=== PATIENT | female | born 1940 | race Caucasian/White ===

== ENCOUNTER 2025-04-12 17:17 | Emergency (ER) | payer OTHER, MEDICARE, SELFPAY ==
--- NOTE | ~2025-04-12 | CT_ITS ---
CT brain wo con Ordering provider: Amy Eason MD History: 84 years Female with . fall, occipital hematoma . Comparison: None. Technique: CT of the head without contrast. Radiation reduction technique utilized.The dose-length pr oduct was 756.67 mGy-cm. FINDINGS: BRAIN PARENCHYMA AND CSF SPACES: Mild leukoaraiosis and diffuse cortical atrophy. Mild atheromatous d isease. No midline shift, mass effect or hemorrhage. The brain parenchyma and CSF spaces are otherwi se normal. VISUALIZED PARANASAL SINUSES: Well aerated. MASTOIDS: Minimal effusion the left mastoid air cells posteriorly Well aerated. BONES: The bones appear intact. SOFT TISSUES: Visualized nasopharynx is normal. Left occipital scalp hematoma. Otherwise, Superficia l soft tissues are normal. IMPRESSION: No acute intracranial findings. Reviewed, dictated and finalized at location A.
--- NOTE | ~2025-04-12 | XR_ITS ---
XR elbow LT 2V Ordering provider: Amy Eason MD History: . fall, ecchymosis . Comparison: None. FINDINGS: BONES: Fracture in the radial head is noted. No other definite fractures seen. JOINT SPACES: Narrowing with osteoarthritic changes. SOFT TISSUES: Anterior fat pad is elevated. IMPRESSION: Fracture radial head with elevation of the anterior fat pad. Reviewed, dictated and finalized at location A.
--- NOTE | ~2025-04-12 | CT_ITS ---
CT cervical spine wo con Ordering provider: Amy Eason MD History: . fall . Comparison: None. Technique: CT of the cervical spine was performed without contrast. Sagittal and coronal reformatted images were also obtained and reviewed. Automated exposure control and iterative reconstruction sandeep hnique were employed. The dose-length product was 756.67 mGy-cm. FINDINGS: VERTEBRAE: Minimal anterolisthesis at the level of C4-C5. No subluxation or acute fracture. The occip ital condyles are intact. Bifid spinous process of C2. DISC SPACES: Narrowing of the disc C5-C6. Multilevel facet joint disease. Multilevel uncovertebral ramy int osteoarthritic changes. Multilevel intervertebral foraminal narrowing. PARASPINOUS SOFT TISSUES: Bilateral atherosclerotic changes of the carotid arteries. IMPRESSION: No acute osseous abnormality cervical spine. Degenerative disc disease at the level of C5-C6. Reviewed, dictated and finalized at location A.
[2025-04-12 17:19] VITALS: BP 162/80; PULSE 128; RESP 19; TEMP 36.7; O2SAT 99
--- NOTE | 2025-04-12 17:36 | ED.FALL ---
HPI - Fall General Chief Complaint: Fall Stated Complaint: fall Time Seen by Provider: 04/12/25 17:30 Source: patient and family Mode of arrival: ambulatory Limitations: no limitations History of Present Illness HPI Narrative: Patient presents after falling in the hospital parking lot approximately 30 minutes prior to arrival as she was visit someone in the hospital. She notes that she was using her walker /roller when it hit a bump causing her to fall. Wound given the pain scale of 0/10 she denies any pain. She states she has only been sore. She initially trialed icing the areas. She did strike her head although she denies loss of consciousness. She has a hematoma on her posterior scalp. She is not on anticoagulation other than 81 mg aspirin which she took today. She also struck her left elbow. She was recently discontinued from her metoprolol. Related Data Allergies Allergy/AdvReac Type Severity Reaction Status Date / Time Penicillins Allergy Hives Verified 04/12/25 17:48 Exam Narrative: GENERAL: Well-appearing, well-nourished, and in no acute distress. HEAD: Moderate sized hematoma with ecchymosis. overlying posterior scalp. Skin intact/no laceration. EYES: Non injected, non icteric ENT: Nares clear, no rhinorrhea or epistaxis. Gross auditory acuity intact. NECK: Supple. No meningismus. CHEST: Speaking in full sentences. No respiratory distress. HEART: Tachycardic rate and rhythm. Strong radial pulse on the left. ABDOMEN: Soft, nondistended. No rigidity or guarding. Not peritoneal EXTREMITIES: Normal range of motion. Patient able to demonstrate extension and flexion of the bilateral wrists and also performs flexion/extension of L elbow. No upper extremity edema. No tenderness to palpation of elbow. SKIN: Warm. Ecchymosis overlying posterior aspect of left elbow. NEURO: No focal deficits. Alert and oriented. Answering questions. Following commands. Normal speech without aphasia or dysarthria. Sensation intact to gross touch throughout the left arm. PSYCH: Normal mood and affect. Course Vital Signs Vital signs: Vital Signs Temperature 98.0 F 04/12/25 17:19 Pulse Rate 128 H 04/12/25 17:19 Respiratory Rate 19 04/12/25 17:19 Blood Pressure 162/80 H 04/12/25 17:19 Pulse Oximetry 99 04/12/25 17:19 Oxygen Delivery Room Air 04/12/25 17:19 Temperature 98.0 F 04/12/25 17:19 Pulse Rate 115 H 04/12/25 20:00 Respiratory Rate 16 04/12/25 20:00 Blood Pressure 127/97 H 04/12/25 20:00 Pulse Oximetry 94 04/12/25 20:00 Oxygen Delivery Room Air 04/12/25 17:43 MDM - Fall MDM Narrative Medical decision making narrative: Patient presents after accidental/mechanical fall in which she was using her walker/roller and it hit a bump. She hit her left elbow and hit her head. No loss of consciousness. She is on aspirin daily. In the emergency department she is afebrile with vital signs notable for hypertension and tachycardia. Neurovascularly intact. No focal neurologic deficits. Given the radial head fracture, will treat with sling for short period of time followed by early [id number] exercises. Patient updated of findings of x-ray and a negative CT at approximately 6:40 p.m.. She confirms that other than being slightly sore/achy she does not have any pain. We discussed multimodal pain therapy including the use of narcotic medication for breakthrough pain although patient states she does not know that she would fill this prescription. We discussed the management, plan, and follow-up for this type of injury. She has never seen an orthopedic surgeon. Differential Diagnosis Differential diagnosis: Likely other (Elbow fracture/dislocation; hematoma; intracranial hemorrhage; skull fracture; C-spine fracture/dislocation) Imaging Data Attestation: I personally reviewed and interpreted this imaging study as follows: My impression: I do appreciate sail sign on my independent interpretation of elbow Xray Radiologist's impression: Impressions Elbow X-Ray 04/12/25 18:07 IMPRESSION: Fracture radial head with elevation of the anterior fat pad. Head CT 04/12/25 18:11 IMPRESSION: No acute intracranial findings. Cervical Spine CT 04/12/25 19:13 IMPRESSION: No acute osseous abnormality cervical spine. Degenerative disc disease at the level of C5-C6. Discharge Plan Discharge Clinical Impression: Hematoma of occipital region of scalp, Degenerative disc disease, cervical Left radial head fracture Qualifiers: Encounter type: initial encounter Fracture type: closed Fall Qualifiers: Encounter type: initial encounter Qualified Code(s): W19.XXXA - Unspecified fall, initial encounter Patient Disposition: Home Condition: Stable Instructions: Antibiotic Form, Elbow Fracture (DC), How to Use a Sling (ED), Narcotic Safety (ED), Fall Prevention for Older Adults (ED), Degenerative Disc Disease (ED), Hematoma (ED) Additional Instructions: Acetaminophen/Tylenol (maximum 4000 mg per day) is safe to take with NSAIDs (ibuprofen/Motrin) for pain relief. You should expect to probably be sore and achy over the next several days. You can continue applying ice though not directly to the skin. For breakthrough pain, a short course of narcotic/opiate medications has been prescribed. You will keep your arm in the sling for the next 3-7 days which off fluids some of the weight but allows you to continue to move this arm a bit. Call the orthopedic surgeon listed below to call to schedule a follow-up appointment. They will recommend when the the sling can be removed in you can start [id number] exercises. Return to the emergency department any new, worsening, or unmanaged symptoms. Patient Language: Turkmen Prescriptions: New acetaminophen 650 mg tablet extended release 650 mg PO Q8H PRN (Reason: pain) Qty: 30 0RF ibuprofen 600 mg tablet 600 mg PO TID PRN (Reason: pain) Qty: 30 0RF oxycodone 5 mg capsule 5 mg PO Q8H PRN (Reason: pain) 3 Days Qty: 7 0RF Follow-up/Referrals: Jason,Nicko Lundberg MD [Non-Staff] - Nestor Yanes MD [Physician] - (orthopedics) Time of Disposition: 19:34
[2025-04-12 17:43] VITALS: BP 190/82; PULSE 100; RESP 20; O2SAT 96
[2025-04-12] MEDS: ACETAMINOPHEN 325 MG TABLET 650 MG PO (18:44)
[2025-04-12 18:46] VITALS: BP 194/106; PULSE 115; RESP 20; O2SAT 96
[2025-04-12 19:21] VITALS: BP 127/97; PULSE 115; RESP 16; O2SAT 94
[2025-04-12 20:00] VITALS: BP 127/97; PULSE 115; RESP 16; O2SAT 94
== END 2025-04-12 20:02 | disposition home or self-care (01) ==
PROVIDERS: Emergency Provider Student in an Organized Health Care Education/Training Program
DX: S00.03XA Contusion of scalp, initial encounter (principal); M50.322 Other cervical disc degeneration at C5-C6 level; S52.122A Displaced fracture of head of left radius, initial encounter for closed fracture; W19.XXXA Unspecified fall, initial encounter; Z79.82 Long term (current) use of aspirin
CPT/HCPCS: 70450; 72125; 73070; 99284; A4565; A9270